=== PATIENT | male | born 1995 | race Caucasian/White ===

== ENCOUNTER 2021-08-22 18:21 | Emergency (ER) | payer OTHER ==
[~2021-08-22] VITALS: Ht 188 cm; Wt 123.4 kg
[2021-08-22 18:52] LABS: ABSOLUTE BASOPHILS 0.1 thou/uL (0.0-0.2); ABSOLUTE EOSINOPHILS 0.1 thou/uL (0.0-0.7); ABSOLUTE LYMPHOCYTES 1.6 thou/uL (0.8-5.3); ABSOLUTE MONOCYTES 0.6 thou/uL (0.0-1.2); ABSOLUTE NEUTROPHILS 2.8 thou/uL (1.6-8.1); BASOPHILS 1.1 %; EOSINOPHILS 1.1 %; HEMATOCRIT 44.5 % (42.0-52.0); HEMOGLOBIN 15.4 gm/dL (14.0-18.0); MCH 32.1 pg (26.0-34.0); MCHC 34.6 g/dL (28.0-37.0); MONOCYTES 12.3 %; NUCLEATED RBCS 0 /100WBC; PLATELET COUNT* 289 thou/uL (150-400); POLYS 54.5 %; RBC 4.79 mil/uL (4.50-6.00); RDW-CV 13.7 % (10.5-14.5); WBC 5.2 thou/uL (4.0-11.0)
[2021-08-22 19:15] LABS: CALCIUM 8.6 mg/dL (8.5-10.1); CREATININE 1.1 mg/dL (0.6-1.3); POTASSIUM 3.8 mmol/L (3.5-5.1)
[2021-08-22 19:29] LABS: ALBUMIN 4.6 g/dL (3.4-5.0); CK-MB MASS 5.1 ng/mL (<0.5-3.6); MAGNESIUM 1.8 mg/dL (1.8-2.4); TOTAL BILIRUBIN 0.2 mg/dL (<0.1-1.0); TOTAL PROTEIN 8.2 g/dL (6.4-8.2)
[2021-08-22 19:45] LABS: URINE BILIRUBIN NEGATIVE (Negative); URINE BLOOD TRACE (Negative); URINE CLARITY CLEAR; URINE COLOR YELLOW; URINE GLUCOSE-RANDOM NEGATIVE (Negative); URINE KETONES NEGATIVE (Negative); URINE LEUKOCYTES-REFLEX NEGATIVE (Negative); URINE NITRITE-REFLEX NEGATIVE (Negative); URINE PROTEIN 1+ (Negative); URINE UROBILINOGEN 0.2 E.U./dl (0.2-1.0)
[2021-08-22 19:54] LABS: AMP/METHAMP Negative (Negative); BARBITURATES Negative (Negative); BENZODIAZEPINES Negative (Negative); COCAINE Negative (Negative); METHADONE Negative (Negative); OPIATES Negative (Negative); PCP Negative (Negative); THC POSITIVE (Negative)
[2021-08-22] MEDS ORDERED: CATAPRES0.2 MG PO (21:12)
[2021-08-22 21:35] VITALS: BP 166/106
--- NOTE | 2021-08-23 09:25 | EKG ---
[place] [address] ELECTROCARDIOGRAM REPORT Name: NAT SAAVEDRA III Room: [facility]#: [id number] Admission: 08/22/21 Attend Phys: Discharge: 08/22/21 Date of : [birth year] Date of Service: 08/22/211821 Report #: [id number] THIS REPORT FOR: //name// [facility] ED Test Date: 2021-08-22 Test Time: 18:22:18 Pat Name: NAT SAAVEDRA Department: Room: Gender: Licensed Appraiser: [facility] [place] : 1995 Requested By: [employer] Brothers Order Number: [id number] MD: Dre Nagy Measurements Intervals [place] Rate: 119 P: 3 CA: 134 QRS: 1 QRSD: 106 T: 38 QT: 328 QTc: 462 Interpretive Statements Sinus tachycardia No previous ECG available for comparison Electronically Signed On 08-23-2021 9:24:55 CDT by Dre Nagy [email or web address] <ELECTRONICALLY SIGNED> By: Dre Nagy MD, [facility] 08/23/21923 21 21 Dre Nagy MD, FACC /EPI
== END 2021-08-22 21:37 | disposition left against medical advice (07) ==
LOC: M.ERS 18:21
PROVIDERS: Family Medicine; Nurse Practitioner Family
DX: S40.022A Contusion of left upper arm, initial encounter (principal); F10.229 Alcohol dependence with intoxication, unspecified; I16.0 Hypertensive urgency; E86.0 Dehydration; K76.0 Fatty (change of) liver, not elsewhere classified; R59.0 Localized enlarged lymph nodes; R07.89 Other chest pain; R55 Syncope and collapse; J45.909 Unspecified asthma, uncomplicated; E66.9 Obesity, unspecified; F17.220 Nicotine dependence, chewing tobacco, uncomplicated; Z68.34 Body mass index [BMI] 34.0-34.9, adult; Z91.018 Allergy to other foods; Y90.7 Blood alcohol level of 200-239 mg/100 ml; W21.07XA Struck by softball, initial encounter; Y93.64 Activity, baseball; Y92.39 Other specified sports and athletic area as the place of occurrence of the external cause; Y99.8 Other external cause status